=== PATIENT | female | born 1965 | race Caucasian/White ===

== ENCOUNTER 2021-04-10 18:39 | Emergency (ER) | payer BC, SELFPAY ==
--- NOTE | ~2021-04-10 | XR_ITS ---
EXAMINATION: XR FINGER, LEFT CLINICAL INFORMATION: Thumb trauma pain. COMPARISON: None TECHNIQUE: 3 views of the left thumb. FINDINGS: The bones and soft tissues are normal. No fracture. Alignment is anatomic. Joint spaces are maintained. XR/XR finger LT min 2V IMPRESSION: Unremarkable left thumb exam.
[2021-04-10 19:04] VITALS: BP 131/67; PULSE 68; RESP 18; TEMP 36.6; O2SAT 97; BMI 32.3
--- NOTE | 2021-04-10 19:11 | ED.WOUNDLAC ---
HPI - Wound/Laceration General Chief Complaint: Wound/Laceration Stated Complaint: finger lac Time Seen by Provider: 04/10/21 19:10 Source: patient Mode of arrival: ambulatory Limitations: no limitations History of Present Illness HPI narrative: 55 y/o female presenting with left thumb injury. She reports cutting the tip of her left thumb off when she was cutting vegetables just prior to arrival. A piece of the tip of her thumb including a small piece of her nail was stuck to the knife. There was profuse bleeding that could not be controlled so her called 911. She is not on blood thinners or aspirin. She arrives with active bleeding and severe pain. She is able to bend the thumb and denies numbness or tingling. Onset (ago): minute(s) (40) Extremity Location: left: hand (tip of thumb) Place: home Patient tetanus UTD: No Context: accidental Associated symptoms: pain Treatments prior to arrival: bandage Related Data Previous Rx's Medication Instructions Recorded cephalexin 500 mg PO Q6H 7 Days #28 cap 04/10/21 hydrocodone-acetaminophen 1 tab PO Q4-6H PRN #8 tab 04/10/21 Allergies Allergy/AdvReac Type Severity Reaction Status Date / Time transparent dressing Allergy Rash Verified 04/10/21 19:09 [Tegaderm] Review of Systems Review of Systems: Constitutional: No Fever, No Chills Gastrointestinal: No Nausea, No Vomiting Musculoskeletal: + joint pain, No Myalgias Skin: + Skin Lesions, No rash Neuro: No Weakness, No Numbness, No Dizziness Psych: + Anxiety/Panic, No Depression Heme/Lymph: No Bruising PMFSH Past Medical History Medical History Asthma Breast CA HTN (hypertension) Lymph edema Surgical History (Updated 04/10/21 @ 19:08 by Paulie Hollingsworth) H/O right mastectomy History of tonsillectomy Social History Social History Advance Directives: No Advance Directives Information Provided: Yes Physical Exam Vital Signs: Vital Signs: Last Vital Signs Temp 98 F 04/10/21 19:04 Pulse 68 04/10/21 19:04 Resp 18 04/10/21 19:04 BP 131/67 04/10/21 19:04 Pulse Ox 97 04/10/21 19:04 Body Mass Index 32.3 Appearance: Alert. Oriented X3. Crying in pain. HEENT: normal inspection CVS: Normal heart rate and rhythm. Pulses normal. Respiratory: No respiratory distress. Skin: Skin warm and dry. Normal skin color. Normal skin turgor. No rashes. Extremities: left thumb with distal tip complete avulsion including diagonal portion of nail with pulsitile bleeding. normal ROM. 2+ radial pulse. No visible bone Neuro: Oriented X 3. No motor deficit. No sensory deficit. Course Course Course Narrative: 55 y/o female presenting with partial left thumb tip amputation/complete avlusion of skin. Dr. Singleton to the bedside to evaluate pulsitile bleeding - recommended deep sutures to control bleeding which was done with good effect. XR pending. Tdap, pain control and abx ordered. Reevaluation(s) Reevaluation #1: XR negative. Bleeding controlled. Pain improved. Xeroform placed with bulky dressing. Additional dressing supplies provided. Patient counseled on wound care management and encouraged to f/u with Dr. Chirinos, hand specialist. Stable for d/c home with ppx abx and pain control. Procedures Laceration Laceration 1: Site: hand Side (If applicable): left Size (cm): 1.5 Description: other (tip amputation) Local Anesthetic: lidocaine 2% Amount of anesthesia used (mL): 1 Pre-repair: irrigated extensively and deep structures intact Skin layer closed with: nylon Size (cm): 4-0 Number of sutures: 3 Technique: simple, interrupted Nerve Block Nerve Block 1: Time out performed: Yes Local Anesthetic: lidocaine 2% Amount of anesthesia used (mL): 5 Side: left Nerve Blocks: digital Procedure Successful: Yes Patient Tolerated Procedure: well Complications: bleeding and pain with procedure Discharge Plan Discharge Clinical Impression: Avulsion of skin of thumb Qualifiers: Encounter type: initial encounter Laterality: left Qualified Code(s): S61.002A - Unspecified open wound of left thumb without damage to nail, initial encounter Patient Disposition: Home, Self-Care Instructions: Skin Avulsion (ED) Additional Instructions: Your thumb x-ray was normal. Keep the current dressing in place for 24 hours. Change it tomorrow night with the supplied provided. Do not get wet for 48 hours. Follow up with the hand specialist Dr. Chirinos. Take the prescribed antibiotic to prevent infection. Keep your hand elevated as much as possible. Use ice several times per day. If you develop any signs or symptoms of infection come back to the ER for further evaluation. Sutures will need to be removed in 5-7 days. See you doctor or come back to the ER for this. Prescriptions: New cephalexin 500 mg capsule 500 mg PO Q6H 7 Days Qty: 28 RF: 0 hydrocodone-acetaminophen 5-325 mg tablet 1 tab PO Q4-6H PRN (Reason: pain) Qty: 8 RF: 0 Referrals: Cassidy Chirinos MD [Physician] - 2 days (left thumb tip complete avulsion) Stand Alone Forms: Work/School Release Interventions: ED Discharge Assessment Last Done: 04/10/21 20:59 Discharge Date/Time: 04/10/21 21:00
[2021-04-10] MEDS: oxyCODONE HCl Immed Release 5 MG TABLET PO (20:03)
[2021-04-10] MEDS: cephALEXin 500 MG CAPSULE PO (20:03)
[2021-04-10] MEDS: Diphth,Pertus(ACell),Tet Adult 0.5 ML SYRINGE IM (20:03)
== END 2021-04-10 21:00 | disposition home or self-care (01) ==
PROVIDERS: Emergency Provider Internal Medicine; PCP Family Medicine
DX: S61.112A Laceration without foreign body of left thumb with damage to nail, initial encounter (principal); W26.0XXA Contact with knife, initial encounter; Y93.G3 Activity, cooking and baking; Y92.009 Unspecified place in unspecified non-institutional (private) residence as the place of occurrence of the external cause; Y99.9 Unspecified external cause status
CPT/HCPCS: 12041; 73140; 90471; 90715; 99283; 99284

== ENCOUNTER → 2021-04-18 14:05 | Outpatient (BNVA) | payer BC, SELFPAY | PROVIDERS: Visit Provider Orthopaedic Surgery ==

== ENCOUNTER → 2021-04-19 08:32 | Outpatient (BNVA) | payer BC, SELFPAY | PROVIDERS: Visit Provider Orthopaedic Surgery ==

== ENCOUNTER → 2021-04-30 12:39 | Outpatient (BNVA) | payer BC, SELFPAY | PROVIDERS: PCP Family Medicine; Visit Provider Orthopaedic Surgery ==

== ENCOUNTER → 2021-05-07 13:34 | Outpatient (BNVA) | payer BC, SELFPAY | PROVIDERS: PCP Family Medicine; Visit Provider Orthopaedic Surgery ==